=== PATIENT | female | born 1960 | race Caucasian/White ===

== ENCOUNTER 2017-07-10 20:40 | Inpatient (IN) | payer OTHER ==
[~2017-07-10] VITALS: Ht 165.1 cm; Wt 56.7 kg
[2017-07-10] MEDS ORDERED: LORAZEPAM 2 MG/1 ML VIAL IM PRN (22:00)
[2017-07-10] MEDS ORDERED: IBUPROFEN 400 MG TABLET PO PRN (22:00)
[2017-07-10] MEDS ORDERED: MAG HYDROX/AL HYDROX/SIMETH 30 ML LIQUID UDC PO PRN (22:00)
[2017-07-10] MEDS ORDERED: MAGNESIUM HYDROXIDE 30 ML LIQUID UDC PO PRN (22:00)
[2017-07-10] MEDS ORDERED: ONDANSETRON 4 MG/2 ML VIAL IM PRN (22:00)
[2017-07-10] MEDS ORDERED: DICYCLOMINE HCL 20 MG TABLET PO PRN (22:00)
[2017-07-10] MEDS ORDERED: MIRALAX 17 GM POWD.PACK PO PRN (22:00)
[2017-07-10] MEDS ORDERED: LOPERAMIDE HCL 2 MG CAPSULE PO PRN ×2 (22:00)
[2017-07-10] MEDS ORDERED: CLONIDINE HCL 0.1 MG TABLET PO PRN (22:00)
[2017-07-10] MEDS ORDERED: LORAZEPAM 1 MG TABLET PO PRN (22:00)
[2017-07-10] MEDS ORDERED: diphenhydrAMINE 50 MG CAPSULE PO PRN (22:00)
[2017-07-10] MEDS ORDERED: ACETAMINOPHEN 325 MG TABLET PO PRN (22:00)
[2017-07-10] MEDS ORDERED: ONDANSETRON ODT 4 MG TAB.RAPDIS SL PRN (22:00)
--- NOTE | 2017-07-10 23:15 | NUR ---
ADMISSION NOTE Pt is a 56 y/o female admitted on 07/10/17 at 2315 for medically supervised ETOH withdrawal. Pt is A&O x 4 and presents with severe agitation, irritability, emotional lability, anger, anxiety, loud speech, difficulty concentrating, flushed skin, headache, disheveled appearance, poor eye contact and is argumentative and easily overwhelmed. Pt is ambulatory with steady gait. Pt verbally abusive to all staff. Pt currently intoxicated from 500 ml of tequila, last intake 2 hours prior to arrival. Initial CIWA deferred at this time. Pt refused to provide UDS, lab blood draw, nurse assessment, and to give vitals Q4H at this time. Pt then yelled, "Just leave me the fuck alone!" Substance Use History: Tequila 500 ml daily, last intake of 500 ml on 07/10/17 2 hours prior to arrival, at this rate for 6 days since relapse. Pt has had multiple treatment histories, refuses to recall any names or dates. Last treatment facility was 2 weeks ago and reports relapsing 6 days ago. Pt reports her longest period of sobriety was 10 months approximately 20 years ago. Pt is full code, regular diet, NKA, and on fall/seizure precautions. No reported seizure history. Pt reports PMH of anxiety, depression, mood disorder and surgical hx of , tonsillectomy and breast augmentation. Pt smokes 1 pack daily. Pt lives at home with family. Pt states that she wants to get sober d/t the negative effects of ETOH on her mental and physical health and relationships. Pt reports having multiple relapses d/t negative influences in her life. Pt presented with increased agitation, refused to give any further information for admission assessment. Oriented pt to room and how to use call light.
--- NOTE | 2017-07-10 23:29 | NUR ---
PAVEL KRUGER AND ISRA Pt reports headache 07/03 and requests sleep aid. Safety measures in place. Call light within reach. Will continue to monitor.
--- NOTE | 2017-07-11 00:29 | NUR ---
PRN MOTRIN AND BENADRYL REASSESSMENT Pt laying in bed with eyes closed, medications noted effective. Safety measures in place. Call light within reach. Will continue to monitor.
--- NOTE | 2017-07-11 04:00 | NUR ---
CIWA DEFERRED AND VITALS REFUSED Pt laying in bed with eyes closed, CIWA deferred, to be assessed when pt is awake per orders. Vitals refused. Respirations even and unlabored. Safety measures in place. Call light within reach. Will continue to monitor.
--- NOTE | 2017-07-11 07:07 | NUR ---
END OF SHIFT Pt is a 56 y/o female admitted on 07/10/17 at 2315 for medically supervised ETOH withdrawal. Pt was drinking 500 ml of tequila daily for 6 days after a relapse. Pt has PRN Ativan available for S/S of withdrawal. Upon assessment pt presented with severe agitation, irritability, emotional lability, anger, anxiety, loud speech, difficulty concentrating, flushed skin, headache, disheveled appearance, poor eye contact and was argumentative and easily overwhelmed. Pt verbally abusive to all staff. Pt was intoxicated then slept 7 hours, CIWA deferred. Pt refused to provide UDS, lab blood draw, nurse assessment, and to give vitals Q4H at this time. Pt then yelled, "Just leave me the fuck alone!" PRN Benadryl and Motrin administered. Intake 1000 ml, void x 0, stool x 0. Safety measures in place. Call light within reach. Endorsed to day shift nurse.
--- NOTE | 2017-07-11 07:37 | NUR ---
BEGINNING OF SHIFT Patient endorsement report received from manufacturing supervisor 2nd shift nurse, all pertinent information discussed. Patient is a 56 year old female with admitting Dx: Etoh withdrawal. Patient currently under close observation, patient currently with no ongoing scheduled taper, but has PRN medication available for s/sx of withdrawal. Patients fall and seizure precautions in place and observed at all times. Patient received awake, alert and oriented. Per manufacturing supervisor 2nd shift report unable to obtain ciwa score due to patient intoxicated, with inappropriate behavior manifested by agitation and verbally abuse towards staff. will monitor closely, will educated regarding plan of care for the day, and medication regimen. Patient received PRN: Benadryl and Motrin, during manufacturing supervisor 2nd shift, patient slept 7 hours. will continue to monitor closely. safety measures in place.
[2017-07-11 08:32] VITALS: BP 147/94
[2017-07-11 08:37] LABS: *URINE HCG, QUAL NEGATIVE (NEGATIVE)
[2017-07-11] MEDS: LORAZEPAM 1 MG TABLET PO PRN ×2 (08:39→16:20)
[2017-07-11] MEDS: MULTIVITAMINS,THERAPEUTIC TABLET PO SCH (08:39)
[2017-07-11] MEDS: FOLIC ACID 1 MG TABLET PO SCH (08:39)
[2017-07-11 08:46] LABS: *BARBITURATE, URINE NEGATIVE (NEGATIVE); *CANNABINOID, URINE NEGATIVE (NEGATIVE); *COCCAINE, URINE NEGATIVE (NEGATIVE); *OPIATE, URINE NEGATIVE (NEGATIVE); *PHENCYCLIDINE SCREEN,URINE NEGATIVE (NEGATIVE)
[2017-07-11 08:51] LABS: BASOPHILS # (AUTO) 0.1 K/uL (0.0-8.0); HEMOGLOBIN 14.5 g/dL (10.9-14.3); LYMPHOCYTES # (AUTO) 2.3 K/uL (20.0-40.0); LYMPHOCYTES % (AUTO) 24.8 % (20.5-51.5); MEAN CORPUSCULAR HGB CONC 35 g/dL (32.3-35.6); MEAN CORPUSCULAR VOLUME 92.7 fL (75.5-95.3); MONOCYTES # (AUTO) 0.5 K/uL (2.0-10.0); MONOCYTES % (AUTO) 5.2 % (0.0-11.0); NEUTROPHILS # (AUTO) 6.4 K/uL (1.8-8.9); PLATELET COUNT (AUTO) 264 K/uL (179-408); RED BLOOD CELL COUNT(AUTO) 4.53 MIL/uL (3.63-4.92); WHITE BLOOD COUNT (AUTO) 9.3 K/uL (3.8-11.8)
[2017-07-11] MEDS ORDERED: TUBERCULIN,PURIF.PROT.DERIV. 5 TU/0.1 ML TEST ID ONE (09:00)
[2017-07-11 09:08] LABS: *AMPHETAMINE, URINE NEGATIVE (NEGATIVE)
[2017-07-11] MEDS: THIAMINE HCL 100 MG TABLET PO SCH (09:09)
[2017-07-11 09:16] LABS: BILIRUBIN,TOTAL 0.6 mg/dL (0.2-1.0); MAGNESIUM 1.5 mg/dL (1.8-2.4); TOTAL PROTEIN, SERUM 7.1 g/dL (6.4-8.2)
[2017-07-11] MEDS ORDERED: VENL150C2 PO (09:27)
[2017-07-11] MEDS ORDERED: ARIP5TAB10 PO (09:27)
--- NOTE | 2017-07-11 09:30 | NUR ---
PSYCH COMMUNICATION Patient was seen by Dr. valdes, patient reported to nurse, she is taking Effexor XR 150mg PO daily, and Abilify 2.5mg PO daily, Per Dr. Valdes, will continue medications.
--- NOTE | 2017-07-11 09:44 | NUR ---
ATIVAN/ZOFRAN REASSESSMENT Patient reports no longer feels nauseous, patient reports feeling less anxious as well, current ciwa score of: 12. will continue to monitor.
[2017-07-11] MEDS: ARIPIPRAZOLE 5 MG TABLET PO SCH (09:55)
[2017-07-11] MEDS: VENLAFAXINE XR 150 MG CAP.SR.24H PO SCH (09:55)
--- NOTE | 2017-07-11 09:59 | NUR ---
PRN ATIVAN/ZOFRAN Patient presented with nausea, tremors, sweats, increase anxiety, clammy skin, flushed face, agitation, moderate head fullness with ciwa score of: 16, Dr. mackenzie notified and patient was administered Ativan 2 mg PO as ordered for s/sx of withdrawal. Patient also administered Zofran 4mg SL for nausea. will continue to monitor. safety measures are in place. Addendum: 07/11/17 at 1021 by LAURYN KAY LVN medications were administered at 0844. will reassess in one hour.
[2017-07-11] MEDS ORDERED: POTASSIUM CHLORIDE 20 MEQ TAB.PRT.SR PO ONE (12:15)
[2017-07-11] MEDS ORDERED: MAGNESIUM OXIDE 400 MG TABLET PO ONE (12:15)
--- NOTE | 2017-07-11 12:30 | NUR ---
POTASSIUM/MG REPLACED Patients potassium and magnesium were replaced by Dr. Junior due to low levels. well tolerated, will continue to monitor.
[2017-07-11 12:47] VITALS: BP 138/89
[2017-07-11 16:19] VITALS: BP 127/83
--- NOTE | 2017-07-11 16:20 | NUR ---
PRN ATIVAN Patient presented with: tremors, anxiety and mild agitation with ciwa score of: 7. as per MD orders patient received Ativan 1 mg PO for s/sx of withdrawal. will continue to monitor closely. safety measures in place.
--- NOTE | 2017-07-11 17:20 | NUR ---
ATIVAN REASSESSMENT medication effective, decrease in tremors, and patient reports feeling less anxious, current ciwa score of: 5. will continue to monitor.
--- NOTE | 2017-07-11 19:07 | NUR ---
END OF SHIFT Patient monitored closely during shift. Patient alert and oriented x4. Admitting Dx: etoh withdrawal. Patient with no episodes of socially inappropriate behavior noted. Patient pleasant, calm and cooperative with staff. Patients isolates herself in the room, despite encouragements to socialize with peers. Patient noted disheveled, with depressed, and anxious mood. During shift patient presented with: nausea, tremors, sweats, anxiety, restlessness, and head fullness, initial ciwa score of: 16, last ciwa score of: 5. Patient encouraged participation in therapy sessions, patient denies any SI/HI. Patient was encouraged to verbalize feelings, encouraged to develop coping skills and utilization of non pharmacological interventions. Encouraged patient to increase PO fluid intake as tolerated. Patients safety measures are in place. call light kept within reach, will continue to monitor. Endorsed to hourly shift manager nurse, all pertinent information discussed.
--- NOTE | 2017-07-11 19:25 | NUR ---
START OF SHIFT Patient is a 56-year-old female admitted on 07/10/17 for ETOH withdrawal. Patient is currently on PRN Ativan to manage signs and symptoms of withdrawal per MD orders. Last CIWA was 5 per endorsement. Patient received PRN Ativan 2mg this morning with PRN Zofran for nausea; both noted as effective. PRN Ativan 1mg was administered PO at 1620, also effective. Upon assessment, patient appears sleepy and disheveled. Patient has several beverage bottles and food wrappers on her bedside table, room is cluttered with patient's belongings. Patient states, "I feel better than earlier today." Patient is on fall and seizure precautions, with no history of seizure. Safety measures in place, bed locked in low position, side rails up x2, call light within reach. Will continue to monitor.
[2017-07-11 20:00] VITALS: BP 118/80
--- NOTE | 2017-07-12 | NUR ---
VITALS REFUSED Patient stated, "Can my vitals be taken later in the morning?" Patient's current CIWA is 4, respirations even and unlabored, 16/min. Safety measures in place, side rails up x2, bed locked in low position, call light within reach. Will continue to monitor.
[2017-07-12 04:00] VITALS: BP 126/81
--- NOTE | 2017-07-12 04:00 | NUR ---
CIWA DEFERRED CIWA deferred at this time due to patient sleeping; to be assessed and scored while patient is awake. Respirations even and unlabored, 14/min. Safety measures in place, side rails up x2, bed locked in low position, call light within reach. Will continue to monitor.
--- NOTE | 2017-07-12 07:15 | NUR ---
END OF SHIFT Patient is a 56-year-old female admitted on 07/10/17 for ETOH withdrawal. Patient is currently on PRN Ativan to manage signs and symptoms of withdrawal per MD orders. Last CIWA was 4 at midnight. Patient received no PRN medications during the shift. Patient slept for 7 hours, total intake of 1,535mL, void x3, stool x0. Patient is on fall and seizure precautions, with no history of seizure. Safety measures in place, bed locked in low position, side rails up x2, call light within reach. Will
--- NOTE | 2017-07-12 07:25 | NUR ---
BEGINNING OF SHIFT Patient endorsement report received from warehouse supervisor 3rd shift nurse, all pertinent information discussed. Patient is a 56 year old female with admitting Dx: Etoh withdrawal. Patient currently under close observation, patient currently with no ongoing scheduled taper, but has PRN medication available for s/sx of withdrawal. Patients fall and seizure precautions in place and observed at all times. Patient received awake, alert and oriented x4. will monitor closely, will educated regarding plan of care for the day, and medication regimen. Patient received no PRNs during warehouse supervisor 3rd shift. patient slept 7 hours. will continue to monitor closely. safety measures in place.
[2017-07-12 08:21] VITALS: BP 138/88
[2017-07-12] MEDS: VENLAFAXINE XR 150 MG CAP.SR.24H PO SCH (08:37)
[2017-07-12] MEDS: MULTIVITAMINS,THERAPEUTIC TABLET PO SCH (08:37)
[2017-07-12] MEDS: FOLIC ACID 1 MG TABLET PO SCH (08:37)
[2017-07-12] MEDS: THIAMINE HCL 100 MG TABLET PO SCH (08:37)
[2017-07-12] MEDS: ARIPIPRAZOLE 5 MG TABLET PO SCH (08:38)
[2017-07-12 13:09] LABS: HEPATITIS B SURFACE AG Negative (Negative)
[2017-07-12 13:24] VITALS: BP 139/90
--- NOTE | 2017-07-12 15:53 | NUR ---
AMA Patient left AMA at 1553 prior to AMA, patient was educated and provided with teaching regarding leaving AMA, with good verbal understanding. Patient refused to comply with treatment, patient adamant about leaving. multiple staff members including doctor, and nurses attempted to reason with patient without any success. VS WNL, skin is intact, patient denied any suicidal or homicidal ideations. patients psychiatrist and MD are aware. Patient was given a list of community resources, AMA forms explained and signed, all belonging were returned to patient. Patient left facility AMA at 1553.
--- NOTE | 2017-07-13 09:20 | NUR ---
Patient left AMA, therefore psychosocial assessment was unable to be completed.
== END 2017-07-12 15:53 | disposition left against medical advice (07) | DRG 894 ==
LOC: SRC 20:40
PROVIDERS: ADMIT Internal Medicine; ATTEND Internal Medicine
PROC: HZ2ZZZZ Detoxification Services for Substance Abuse Treatment (ICD-10-PCS; principal; 2017-07-10)
PROC: HZ51ZZZ Individual Psychotherapy for Substance Abuse Treatment, Behavioral (ICD-10-PCS; 2017-07-12)
DX: F10.230 Alcohol dependence with withdrawal, uncomplicated (principal); E83.42 Hypomagnesemia; E87.1 Hypo-osmolality and hyponatremia; F33.1 Major depressive disorder, recurrent, moderate; Y90.2 Blood alcohol level of 40-59 mg/100 ml; E87.6 Hypokalemia; R73.9 Hyperglycemia, unspecified
CPT/HCPCS: 36415; 80307; 83735; 84703; 85025; 86580; 86592; 86705; 86803; 87340; 87806; A4663; G0480; Q0162; Q0163

== ENCOUNTER 2018-10-23 10:17 | Emergency (ER) | payer OTHER ==
[~2018-10-23] VITALS: Ht 165.1 cm; Wt 54.4 kg
[~2018-10-23 10:17] MED LIST: ARIP5TAB10 PO; VENL150C2 PO
[2018-10-23] MEDS ORDERED: KETOROLAC TROMETHAMINE 30 MG INJ ONE (10:25)
[2018-10-23] MEDS ORDERED: ONDANSETRON 4 MG/2 ML VIAL ONE ×2 (10:25→11:50)
[2018-10-23] MEDS ORDERED: IV NORMAL SALINE 1000 ML BAG IV ONE ×2 (10:30→12:30)
[2018-10-23] MEDS ORDERED: ONDANSETRON 4 MG/2 ML VIAL IV ONE ×2 (10:30→12:00)
[2018-10-23 10:42] LABS: BASOPHILS # (AUTO) 0.1 K/uL (0.0-8.0); BASOPHILS % (AUTO) 1.1 % (0.0-2.0); EOSINOPHILS % (AUTO) 0.3 % (0.0-7.0); HEMATOCRIT 46.1 % (31.2-41.9); HEMOGLOBIN 15.4 g/dL (10.9-14.3); LYMPHOCYTES # (AUTO) 2.3 K/uL (20.0-40.0); LYMPHOCYTES % (AUTO) 20.4 % (20.5-51.5); MEAN CORPUSCULAR HEMOGLOBIN 30.2 uug (24.7-32.8); MEAN CORPUSCULAR HGB CONC 33 g/dL (32.3-35.6); MEAN CORPUSCULAR VOLUME 90.7 fL (75.5-95.3); MONOCYTES # (AUTO) 0.7 K/uL (2.0-10.0); MONOCYTES % (AUTO) 6.5 % (0.0-11.0); NEUTROPHILS % (AUTO) 71.7 % (38.5-71.5); PLATELET COUNT (AUTO) 267 K/uL (179-408); RED BLOOD CELL COUNT(AUTO) 5.08 MIL/uL (3.63-4.92); WHITE BLOOD COUNT (AUTO) 11.2 K/uL (3.8-11.8)
[2018-10-23 10:50] LABS: CARBON DIOXIDE 23 mmol/L (21-32); CHLORIDE 105 mmol/L (98-107); CREATININE 1.2 mg/dL (0.6-1.3); GLUCOSE 125 mg/dL (74-106); UREA NITROGEN, BLOOD 13 mg/dL (7-18)
[2018-10-23 11:00] LABS: ALANINE AMINOTRANSFERASE 21 U/L (14-59); ALKALINE PHOSPHATASE 89 U/L (50-136); ASPARTATE AMINOTRANSFERASE 19 U/L (15-37); BILIRUBIN,DIRECT 0.1 mg/dL (0.0-0.2); BILIRUBIN,TOTAL 0.6 mg/dL (0.2-1.0); TOTAL PROTEIN, SERUM 7.3 g/dL (6.4-8.2)
[2018-10-23 11:26] LABS: *BILIRUBIN,URIN NEGATIVE (NEGATIVE); *BLOOD, URINE 3+ (NEGATIVE); *CLARITY,URINE SLIGHTLY CLOUDY (CLEAR); *COLOR,URINE YELLOW (YELLOW); *KETONES,URINE NEGATIVE (NEGATIVE); *UROBILINOGEN,URINE 0.2 E.U./dl (NORMAL); LEUKOCYTE ESTERASE ,URINE TRACE (NEGATIVE); NITRITE, URINE NEGATIVE (NEGATIVE); PH,URINE 6.5 (5.0-8.0); UGLUCOSE NEGATIVE (NEGATIVE)
[2018-10-23 11:34] LABS: BACTERIA,URINE FEW /HPF (NONE SEEN); RBC,URINE 50-80 /HPF (0-3); SQUAMOUS EPITHELIAL CELL,UR FEW /HPF (NONE SEEN)
[2018-10-23] MEDS ORDERED: TAMSULOSIN HCL 0.4 MG CAP.SR.24H PO ONE (11:45)
[2018-10-23] MEDS ORDERED: MORPHINE SULFATE 4 MG/1 ML DISP.SYRIN ONE (11:51)
[2018-10-23] MEDS ORDERED: MORPHINE SULFATE 4 MG/1 ML DISP.SYRIN IV ONE (12:00)
[2018-10-23] MEDS ORDERED: TAMSULOSIN HCL 0.4 MG CAP.SR.24H ONE (12:00)
[2018-10-23 13:44] VITALS: BP 158/70
--- NOTE | 2018-10-23 13:45 | NUR ---
homegoing instructions and exit care plus prescriptions given to patient. discharged home with family in attendance
== END 2018-10-23 13:46 | disposition home or self-care (01) ==
LOC: ER 10:17
DX: N20.0 Calculus of kidney (principal); Z79.899 Other long term (current) drug therapy
CPT/HCPCS: 36415; 76770; 80048; 80076; 81000; 81001; 84702; 85025; 87086; 96361; 96374; 96375; 96376; 99284; J1885; J2270; J2405 ×2; A4663; J7030

== ENCOUNTER 2018-10-28 13:06 | Emergency (ER) | payer OTHER ==
[~2018-10-28] VITALS: Ht 165.1 cm; Wt 56.7 kg
[2018-10-28] MEDS ORDERED: HYDR-4354 PO (13:29)
[2018-10-28] MEDS ORDERED: ATOM80CA PO (13:29)
[2018-10-28 13:54] LABS: *BILIRUBIN,URIN NEGATIVE (NEGATIVE); *BLOOD, URINE 3+ (NEGATIVE); *CLARITY,URINE CLOUDY (CLEAR); *COLOR,URINE YELLOW (YELLOW); *KETONES,URINE TRACE (NEGATIVE); *UROBILINOGEN,URINE 0.2 E.U./dl (NORMAL); LEUKOCYTE ESTERASE ,URINE 1+ (NEGATIVE); NITRITE, URINE NEGATIVE (NEGATIVE); UGLUCOSE NEGATIVE (NEGATIVE)
[2018-10-28 13:59] LABS: BACTERIA,URINE FEW /HPF (NONE SEEN); RBC,URINE TNTC /HPF (0-3); SQUAMOUS EPITHELIAL CELL,UR FEW /HPF (NONE SEEN)
[2018-10-28 13:59] LABS: BASOPHILS % (AUTO) 0.7 % (0.0-2.0); EOSINOPHILS # (AUTO) 0.1 K/uL (0.0-0.7); EOSINOPHILS % (AUTO) 1.9 % (0.0-7.0); HEMATOCRIT 41.3 % (31.2-41.9); HEMOGLOBIN 13.6 g/dL (10.9-14.3); LYMPHOCYTES # (AUTO) 2.7 K/uL (20.0-40.0); LYMPHOCYTES % (AUTO) 39.6 % (20.5-51.5); MEAN CORPUSCULAR HEMOGLOBIN 29.7 uug (24.7-32.8); MEAN CORPUSCULAR HGB CONC 33 g/dL (32.3-35.6); MEAN CORPUSCULAR VOLUME 90.3 fL (75.5-95.3); MONOCYTES # (AUTO) 0.6 K/uL (2.0-10.0); MONOCYTES % (AUTO) 8.6 % (0.0-11.0); NEUTROPHILS # (AUTO) 3.3 K/uL (1.8-8.9); NEUTROPHILS % (AUTO) 49.2 % (38.5-71.5); PLATELET COUNT (AUTO) 265 K/uL (179-408); RED BLOOD CELL COUNT(AUTO) 4.57 MIL/uL (3.63-4.92); WHITE BLOOD COUNT (AUTO) 6.8 K/uL (3.8-11.8)
[2018-10-28 14:11] LABS: CREATININE 1.1 mg/dL (0.6-1.3); POTASSIUM 4.1 mmol/L (3.5-5.1)
[2018-10-28 14:16] LABS: BILIRUBIN,TOTAL 0.3 mg/dL (0.2-1.0); TOTAL PROTEIN, SERUM 7.2 g/dL (6.4-8.2)
[2018-10-28 15:27] VITALS: BP 132/69
--- NOTE | 2018-10-28 15:27 | NUR ---
pt was evaluated by dr houser. pt was d/c'd to home. d/c instructions given to the pt.
== END 2018-10-28 15:28 | disposition home or self-care (01) ==
LOC: ER 13:06
DX: N20.1 Calculus of ureter (principal); Z79.899 Other long term (current) drug therapy
CPT/HCPCS: 36415; 85025; 87086; A4663

== ENCOUNTER 2018-10-29 18:31 | Emergency (ER) | payer OTHER ==
[~2018-10-29] VITALS: Ht 165.1 cm; Wt 56.7 kg
[~2018-10-29 18:31] MED LIST changes: +ATOM80CA PO; +HYDR-4354 PO
[2018-10-29 18:47] LABS: *BILIRUBIN,URIN NEGATIVE (NEGATIVE); *BLOOD, URINE 3+ (NEGATIVE); *KETONES,URINE NEGATIVE (NEGATIVE); *UROBILINOGEN,URINE 0.2 E.U./dl (NORMAL); LEUKOCYTE ESTERASE ,URINE 1+ (NEGATIVE); NITRITE, URINE NEGATIVE (NEGATIVE); UGLUCOSE NEGATIVE (NEGATIVE)
[2018-10-29 18:58] LABS: *CLARITY,URINE SLIGHTLY CLOUDY (CLEAR); *COLOR,URINE DARK YELLOW (YELLOW)
[2018-10-29 19:03] LABS: MUCUS,URINE FEW /LPF (0-FEW); SQUAMOUS EPITHELIAL CELL,UR FEW /HPF (NONE SEEN)
[2018-10-29 19:04] LABS: BACTERIA,URINE FEW /HPF (NONE SEEN); RBC,URINE 80-100 /HPF (0-3)
[2018-10-30] MEDS ORDERED: SIMV10TA6 PO (16:41)
[2018-10-30] MEDS ORDERED: QUET25TA PO (16:41)
[2018-10-30] MEDS ORDERED: NITR100C11 PO (16:44)
== END 2018-10-29 19:22 | disposition home or self-care (01) ==
LOC: ER 18:32
DX: N20.1 Calculus of ureter (principal); Z79.899 Other long term (current) drug therapy
CPT/HCPCS: 87077; 87086; A4663

== ENCOUNTER 2018-10-30 13:56 | Inpatient (IN) | payer OTHER ==
[~2018-10-30] VITALS: Ht 165.1 cm; Wt 56.7 kg
[~2018-10-30 13:56] MED LIST changes: -ARIP5TAB10 PO; -VENL150C2 PO
[2018-10-30] MEDS ORDERED: IV NORMAL SALINE 1000 ML BAG IV ONE ×2 (14:15→15:45)
[2018-10-30] MEDS ORDERED: ONDANSETRON 4 MG/2 ML VIAL IV ONE (14:15)
[2018-10-30] MEDS ORDERED: ONDANSETRON 4 MG/2 ML VIAL ONE (14:19)
[2018-10-30] MEDS ORDERED: CEFTRIAXONE 1 G in IV DEXTROSE 5% 50 ML IV ONE (14:30)
[2018-10-30 14:46] LABS: BASOPHILS % (AUTO) 0.6 % (0.0-2.0); EOSINOPHILS # (AUTO) 0.2 K/uL (0.0-0.7); HEMOGLOBIN 13.4 g/dL (10.9-14.3); LYMPHOCYTES # (AUTO) 0.8 K/uL (20.0-40.0); LYMPHOCYTES % (AUTO) 12.2 % (20.5-51.5); MEAN CORPUSCULAR HGB CONC 33 g/dL (32.3-35.6); MEAN CORPUSCULAR VOLUME 91.8 fL (75.5-95.3); MONOCYTES # (AUTO) 0.5 K/uL (2.0-10.0); MONOCYTES % (AUTO) 8.4 % (0.0-11.0); NEUTROPHILS # (AUTO) 4.7 K/uL (1.8-8.9); NEUTROPHILS % (AUTO) 75.8 % (38.5-71.5); PLATELET COUNT (AUTO) 245 K/uL (179-408); RED BLOOD CELL COUNT(AUTO) 4.47 MIL/uL (3.63-4.92); WHITE BLOOD COUNT (AUTO) 6.1 K/uL (3.8-11.8)
--- NOTE | 2018-10-30 15:05 | NUR ---
Patient is resting comfortably on gurney with eyes closed, IV fluids infusing well, NAD. Family is at bedside.
[2018-10-30 15:07] LABS: CREATININE 1.2 mg/dL (0.6-1.3); POTASSIUM 3.3 mmol/L (3.5-5.1)
[2018-10-30 15:12] LABS: BILIRUBIN,DIRECT 0.1 mg/dL (0.0-0.2); BILIRUBIN,TOTAL 0.4 mg/dL (0.2-1.0); TOTAL PROTEIN, SERUM 6.7 g/dL (6.4-8.2)
--- NOTE | 2018-10-30 15:22 | NUR ---
Patient is c/o severe left flank pains after voiding, MD notified.
[2018-10-30 15:26] LABS: *BILIRUBIN,URIN 1+ (NEGATIVE); *BLOOD, URINE 2+ (NEGATIVE); *CLARITY,URINE SLIGHTLY CLOUDY (CLEAR); *COLOR,URINE YELLOW (YELLOW); *KETONES,URINE NEGATIVE (NEGATIVE); LEUKOCYTE ESTERASE ,URINE TRACE (NEGATIVE); NITRITE, URINE NEGATIVE (NEGATIVE); UGLUCOSE NEGATIVE (NEGATIVE)
[2018-10-30] MEDS ORDERED: KETOROLAC TROMETHAMINE 30 MG INJ ONE (15:28)
[2018-10-30] MEDS ORDERED: POTASSIUM CHLORIDE 20 MEQ TAB.PRT.SR PO ONE (15:30)
[2018-10-30] MEDS ORDERED: KETOROLAC TROMETHAMINE 30 MG INJ IVP ONE (15:30)
[2018-10-30] MEDS ORDERED: POTASSIUM CHLORIDE 20 MEQ TAB.PRT.SR ONE (15:34)
[2018-10-30 15:36] LABS: BACTERIA,URINE FEW /HPF (NONE SEEN); MUCUS,URINE FEW /LPF (0-FEW); RBC,URINE 50-80 /HPF (0-3); SQUAMOUS EPITHELIAL CELL,UR MODERATE /HPF (NONE SEEN); WBC,URINE 20-50 /HPF (0-3)
[2018-10-30] MEDS ORDERED: HYDROMORPHONE 1 MG/1 ML DISP.SYRIN ONE ×2 (15:54→16:33)
[2018-10-30] MEDS ORDERED: HYDROMORPHONE 1 MG/1 ML DISP.SYRIN IV ONE ×2 (16:00→16:30)
--- NOTE | 2018-10-30 16:25 | NUR ---
Patient is c/o severe flank pains MD frederick notified
[2018-10-30] MEDS ORDERED: QUET25TA PO (16:41)
[2018-10-30] MEDS ORDERED: SIMV10TA6 PO (16:41)
[2018-10-30] MEDS ORDERED: NITR100C11 PO (16:44)
--- NOTE | 2018-10-30 16:44 | NUR ---
pending admitting papers from ER registration staff@this time, patient voided 3x while in ER
[2018-10-30 17:00] VITALS: BP 128/81
[2018-10-30] MEDS ORDERED: ACETAMINOPHEN 325 MG TABLET PO PRN (17:00)
[2018-10-30] MEDS ORDERED: QUETIAPINE FUMARATE 25 MG TABLET PO PRN (17:00)
[2018-10-30] MEDS ORDERED: ONDANSETRON 4 MG/2 ML VIAL IV PRN (17:00)
[2018-10-30] MEDS ORDERED: ZOLPIDEM 5 MG TABLET PO PRN (17:00)
[2018-10-30] MEDS ORDERED: MAGNESIUM HYDROXIDE 30 ML LIQUID UDC PO PRN (17:00)
[2018-10-30] MEDS ORDERED: HYDROCODONE/APAP 5-325MG TABLET PO PRN (17:00)
--- NOTE | 2018-10-30 17:15 | NUR ---
57 year old female received from er via wheel chair to room 327 in stable condition,vs are stable,call light with in reach md called for admission orders,
[2018-10-30] MEDS: IV NS 1000 ML 1,000 ML IV PRN (17:30)
--- NOTE | 2018-10-30 19:30 | NUR ---
Received patient awake in bed, not in any acute distress. Alert and oriented x 4, ambulatory. With ongoing IV fluid, infusing well at IV access on the left hand. Patient instructed that urine needs to be strained, patient verbalize she is aware and she can do it herself. Answered patient's questions about medications to which she verbalized understanding. Ensured bed is in low position, locked, side rails up x 2 for safety and call light is within patient's reach. Will continue to monitor.
[2018-10-30] MEDS: HYDROCODONE/APAP 10-325 MG TABLET PO PRN (19:34)
[2018-10-30 19:54] VITALS: BP 117/68
[2018-10-30] MEDS ORDERED: SIMVASTATIN 10 MG TABLET PO SCH (21:00)
--- NOTE | 2018-10-30 23:15 | NUR ---
Patient seen and examined by Dr. Valerio, Urologist. Per MD, patient to have surgery tomorrow morning. Instructed patient to remain NPO after midnight, patient verbalized understanding.
[2018-10-31] MEDS: MORPHINE SULFATE 2 MG/1 ML DISP.SYRIN IV PRN ×3 (00:53→13:14)
[2018-10-31] MEDS: IV NS 1000 ML 1,000 ML IV PRN (00:56)
--- NOTE | 2018-10-31 04:30 | NUR ---
Patient had no further questions about the procedure after Dr. Valerio discussed it with her. Obtained informed consent and attached it to the chart.
[2018-10-31] MEDS ORDERED: METOCLOPRAMIDE HCL 10 MG/2 ML VIAL IV PRN (05:15)
[2018-10-31 05:26] VITALS: BP 137/75
--- NOTE | 2018-10-31 05:35 | NUR ---
Patient had a vomiting episode, contacted interventional tech provider, Natasha Najera who ordered to give patient Reglan 10mg IV Q6HR PRN for nausea and vomiting in addition to Zofran. Patient informed that EKG and CXR will be done this AM since this tests are required for surgery to which patient verbalized understanding. Per pharmacy Zofran and Reglan should not be given at the same time.
[2018-10-31 06:51] LABS: BASOPHILS % (AUTO) 0.1 % (0.0-2.0); EOSINOPHILS # (AUTO) 0.1 K/uL (0.0-0.7); EOSINOPHILS % (AUTO) 2.3 % (0.0-7.0); HEMATOCRIT 38.5 % (31.2-41.9); HEMOGLOBIN 13.1 g/dL (10.9-14.3); LYMPHOCYTES % (AUTO) 14.8 % (20.5-51.5); MEAN CORPUSCULAR HEMOGLOBIN 31.8 uug (24.7-32.8); MEAN CORPUSCULAR HGB CONC 34 g/dL (32.3-35.6); MEAN CORPUSCULAR VOLUME 93.3 fL (75.5-95.3); MONOCYTES # (AUTO) 0.6 K/uL (2.0-10.0); NEUTROPHILS # (AUTO) 4.8 K/uL (1.8-8.9); NEUTROPHILS % (AUTO) 73.8 % (38.5-71.5); PLATELET COUNT (AUTO) 227 K/uL (179-408); RED BLOOD CELL COUNT(AUTO) 4.13 MIL/uL (3.63-4.92); WHITE BLOOD COUNT (AUTO) 6.5 K/uL (3.8-11.8)
[2018-10-31] MEDS ORDERED: ZOLPIDEM 5 MG TABLET PO PRN (07:30)
[2018-10-31 07:33] LABS: THYROID STIMULATING HORMONE 0.898 mIU/mL (0.358-3.740)
[2018-10-31 08:02] LABS: MAGNESIUM 1.6 mg/dL (1.8-2.4); PHOSPHOROUS 2.9 mg/dL (2.5-4.9); POTASSIUM 4.4 mmol/L (3.5-5.1)
[2018-10-31] MEDS ORDERED: IOHEXOL-240 MG , 50 ML VIAL IV ONE (08:55)
[2018-10-31] MEDS ORDERED: FENTANYL CITRATE 100 MCG/2 ML AMPUL ONE (09:34)
[2018-10-31] MEDS ORDERED: MIDAZOLAM HCL 2 MG/2 ML VIAL ONE (09:34)
[2018-10-31 11:30] VITALS: BP 112/69
[2018-10-31] MEDS: MAGNESIUM SULFATE/D5W 100 ML IV SCH ×2 (12:31→13:56)
[2018-10-31 12:33] VITALS: BP 119/77
[2018-10-31 12:35] VITALS: BP 115/70
[2018-10-31] MEDS ORDERED: CEFTRIAXONE 1 G in IV DEXTROSE 5% 50 ML IV SCH (14:00)
[2018-10-31] MEDS ORDERED: CEPH-570 PO (14:22)
[2018-10-31] MEDS: HYDROCODONE/APAP 10-325 MG TABLET PO PRN (14:29)
[2018-10-31 16:14] VITALS: BP 136/81
--- NOTE | 2018-10-31 16:50 | NUR ---
IV D/C'D PT. DENIES PAIN AT THIS TIME. ALL HOME INSTRUCTIONS REVIEWED WITH PT. PT. SENT HOME WITH STRAINER AND COLLECTION EQUIPMENT. PHARMACIST IN TO REVIEW HOME MEDS. STATES FEELS MUCH BETTER AND CANNOT WAIT TO GET HOME. DISCHARGED TO [facility] VIA W/C BY Lianne.
[2018-10-31] MEDS ORDERED: ONDANSETRON 4 MG/2 ML VIAL IV ONE (16:59)
[2018-10-31] MEDS ORDERED: SEVOFLURANE 250 ML BOTTLE IH ONE (16:59)
[2018-10-31] MEDS ORDERED: PROPOFOL 200 MG/20 ML BOTTLE IV ONE (16:59)
[2018-10-31] MEDS ORDERED: LIDOCAINE-MPF 2% 5 ML VIAL IJ ONE (16:59)
[2018-10-31] MEDS ORDERED: DEXAMETHASONE SOD PHOSPHATE 4 MG INJ IV ONE (16:59)
[2018-10-31] MEDS ORDERED: EPHEDRINE SULFATE 50 MG/ML AMPUL IM ONE (16:59)
[2018-10-31] MEDS ORDERED: IV NORMAL SALINE 1000 ML BAG IV ONE ×3 (16:59)
[2018-10-31] MEDS ORDERED: CEFAZOLIN 1 G VIAL IM ONE (16:59)
== END 2018-10-31 17:00 | disposition home or self-care (01) | DRG 661 ==
LOC: ER 13:56 → MEDSURG3 16:45
PROC: 0T778DZ Dilation of Left Ureter with Intraluminal Device, Via Natural or Artificial Opening Endoscopic (ICD-10-PCS; principal; 2018-10-31)
DX: N13.2 Hydronephrosis with renal and ureteral calculous obstruction (principal); F17.210 Nicotine dependence, cigarettes, uncomplicated; Z79.899 Other long term (current) drug therapy; Z87.442 Personal history of urinary calculi
CPT/HCPCS: 36415; 70030-TC; 71045; 76770; 83605; 83735; 84100; 84443; 85025; 87040; 87086; 93005; A4663; C2625; G0378; J0690; J0696; J1100; J1170; J1885; J2250; J2270; J2405; J2765; J3010; J3475; J3490; J7030; J7060; Q9966

== ENCOUNTER 2018-11-03 10:19 | Emergency (ER) | payer OTHER ==
[~2018-11-03] VITALS: Ht 165.1 cm; Wt 56.7 kg
[~2018-11-03 10:19] MED LIST changes: +CEPH-570 PO; -HYDR-4354 PO; +QUET25TA PO; +SIMV10TA6 PO
[2018-11-03 10:48] LABS: BASOPHILS % (AUTO) 0.5 % (0.0-2.0); EOSINOPHILS # (AUTO) 0.1 K/uL (0.0-0.7); EOSINOPHILS % (AUTO) 1.5 % (0.0-7.0); HEMATOCRIT 43.9 % (31.2-41.9); HEMOGLOBIN 14.5 g/dL (10.9-14.3); LYMPHOCYTES # (AUTO) 2.7 K/uL (20.0-40.0); LYMPHOCYTES % (AUTO) 33.2 % (20.5-51.5); MEAN CORPUSCULAR HEMOGLOBIN 30.2 uug (24.7-32.8); MEAN CORPUSCULAR HGB CONC 33 g/dL (32.3-35.6); MEAN CORPUSCULAR VOLUME 91.3 fL (75.5-95.3); MONOCYTES # (AUTO) 0.6 K/uL (2.0-10.0); MONOCYTES % (AUTO) 7.8 % (0.0-11.0); NEUTROPHILS # (AUTO) 4.7 K/uL (1.8-8.9); PLATELET COUNT (AUTO) 343 K/uL (179-408); RED BLOOD CELL COUNT(AUTO) 4.81 MIL/uL (3.63-4.92); WHITE BLOOD COUNT (AUTO) 8.3 K/uL (3.8-11.8)
[2018-11-03 10:52] LABS: CREATININE 0.9 mg/dL (0.6-1.3); POTASSIUM 3.5 mmol/L (3.5-5.1)
[2018-11-03 10:55] LABS: *BILIRUBIN,URIN 1+ (NEGATIVE); *BLOOD, URINE 2+ (NEGATIVE); *CLARITY,URINE CLOUDY (CLEAR); *COLOR,URINE RED (YELLOW); *KETONES,URINE NEGATIVE (NEGATIVE); *UROBILINOGEN,URINE 0.2 E.U./dl (NORMAL); LEUKOCYTE ESTERASE ,URINE 1+ (NEGATIVE); NITRITE, URINE NEGATIVE (NEGATIVE); UGLUCOSE NEGATIVE (NEGATIVE)
[2018-11-03 10:57] LABS: RBC,URINE TNTC /HPF (0-3); SQUAMOUS EPITHELIAL CELL,UR FEW /HPF (NONE SEEN)
[2018-11-03 10:58] LABS: BACTERIA,URINE NONE SEEN /HPF (NONE SEEN)
--- NOTE | 2018-11-03 11:02 | NUR ---
CALLED DR. VILLAR, UROLOGIST, AND LEFT MESSAGE FOR UROLOGIST CONSULT.
--- NOTE | 2018-11-03 11:05 | NUR ---
LILLY WU SPEAKING W/ DR. VILLAR ON THE PHONE.
--- NOTE | 2018-11-03 11:12 | NUR ---
Patient discharged to home in stable conditon. Written and verbal after care instructions given. Patient verbalizes understanding of instructions.
== END 2018-11-03 11:12 | disposition home or self-care (01) ==
LOC: ER 10:19
DX: N20.1 Calculus of ureter (principal); R31.9 Hematuria, unspecified; Z79.899 Other long term (current) drug therapy
CPT/HCPCS: 36415; 85025; 87086; A4663